=== PATIENT | female | born 2005 | race Caucasian/White ===

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

== ENCOUNTER 2024-04-29 09:31 | Outpatient (CLI) | payer OTHER, SELFPAY ==
[2024-04-29 11:02] LABS: HCG,Quantitative < 2 mIU/ml (0-5.42)
[2024-04-30 13:49] LABS: Progesterone 0.3 ng/mL (.)
== END 2024-04-29 23:59 | disposition home or self-care (01) ==
LOC: LAB 09:32
PROVIDERS: Visit Provider Obstetrics & Gynecology
DX: N92.6 Irregular menstruation, unspecified (principal)
CPT/HCPCS: 36415; 84144; 84702

== ENCOUNTER 2024-06-16 14:00 | Emergency (ER) | payer OTHER, SELFPAY ==
[2024-06-16] VITALS (7 sets, daily range): BP systolic 131–157; BP diastolic 78–101; PULSE 62–76; RESP 16–18; TEMP 36.7; O2SAT 96–100; BMI 26.6
--- NOTE | 2024-06-16 14:48 | ED_ITS ---
<Statement entered by Danyell Ritter DO - 06/16/24 22:57> I was consulted by the JL, and we discussed the complexity of the problems being addressed. I approved the treatment and management plan for this patient's care in the emergency department, thus performing a substantive portion of the medical decision making. Danyell Ritter DO Discharge Plan Disposition Patient Disposition: Home, Self-Care Condition: Good Prescriptions Prescriptions: No Action levonorgestrel-ethinyl estrad [Aviane] 0.1-20 mg-mcg tablet 1 tab PO DAILY Qty: 84 4RF sertraline 50 mg tablet 50 mg PO DAILY Qty: 30 2RF Referrals Follow up/Referrals: Twan Santizo II, MD [Staff Physician] - See instructions Simón Vilchis DO [Staff Physician] - See instructions Provider,MD Mya [Primary Care Provider] - See instructions Activity Restrictions/Add. Instructions Additional Instructions/Restrictions: As we discussed I have referred you both to gastroenterology and to Dr. Vilchis as your PCP. You will need further workup as an outpatient. Please call in the morning to make an appointment for Dr. Santizo. Return to ER for any worsening signs or symptoms as needed. Clinical Impressions Clinical Impression: Abdominal pain, epigastric Instructions Patient Instructions: DI for Acute Abdominal Pain Print Language Print Language: Faroese Discharge ED Provider: Danyell Ritter General Adult HPI General Chief complaint: Abdominal Pain Stated complaint: gallbladder pain Time Seen by Provider: 06/16/24 14:48 History of Present Illness HPI narrative: Patient is here for evaluation of epigastric abdominal pain. Patient gives a history of 2 years of up to now intermittent epigastric abdominal pain primarily after eating. She has never had it worked up previously and usually lasts for a day or so and it goes away. However over the last week it has happened daily after every meal. She is still tolerating oral intake but reports nausea pain in the epigastrium that does not radiate no fever chills she is nauseated but no vomiting diarrhea. She is still having normal bowel movements and passing gas. She has never had any abdominal surgeries. Currently however her pain is not present. Related Data Previous Rx's ?Medication ?Instructions ?Recorded sertraline 50 mg tablet 50 mg PO DAILY #30 tabs 01/10/24 levonorgestrel-ethinyl estradiol 1 tab PO DAILY #84 tabs 04/10/24 0.1 mg-20 mcg tablet (Aviane) Allergies Allergy/AdvReac Type Severity Reaction Status Date / Time No Known Allergies Allergy Verified 05/20/24 10: [facility] Disclaimer: The information contained in this section may have been updated after the patient was seen, as this information can be updated by other users. Medical History History of chlamydia infection Abnormal uterine bleeding LLQ pain Depression Anxiety Irregular periods History of ovarian cyst Surgical History (Reviewed 05/20/24 @ 10: by Claudette Su MA) History of tonsillectomy Family History (Reviewed 05/20/24 @ : by Claudette Su MA) Father Hypertension Social History (Reviewed 05/20/24 @ : by Claudette Su MA) Smoking Status: Current every day smoker tobacco type: e-cigarettes alcohol intake: never current occupational status: other Travel in the last 8 weeks: None Other Medical History Have you received the Flu Vaccine for this season: No Have you received the Pneumonia Vaccine: No ROS Obtained: Yes Systems reviewed as appropriate & no additional complaints except as documented Physical Exam General General appearance: alert and in no apparent distress Neck Neck exam: Present lymphadenopathy Respiratory Respiratory exam: Present normal lung sounds bilaterally Cardiovascular Cardiovascular exam: Present regular rate Neurological Exam Neurological exam: Present alert and oriented X3 Medical Decision Making Medical Records Medical records reviewed: Yes I reviewed the patient's medical records. Screening: Per USPSTF and CDC recommendations, given the prevalence of disease in our region, it is our hospital?s policy to screen for HIV and viral Hepatitis for all patients aged 18 and over and those with ongoing risk factors. Lb Inquiry Pt receiving controlled substance: No Vital Signs: 06/16/24 14:53 06/16/24 15:00 06/16/24 15:30 Temperature 98.1 F Temperature Source Oral Pulse Rate 73 66 Pulse Rate [Right Brachial] 65 Respiratory Rate 18 18 16 Blood Pressure 132/83 144/101 H Blood Pressure [Right Arm] 157/92 H Blood Pressure Mean 99 109 Blood Pressure Mean [Right Arm] 113 02 Sat by Pulse Oximetry 99 100 100 Oxygen Delivery Method Room Air 06/16/24 16:33 06/16/24 17:01 06/16/24 17:30 Temperature Temperature Source Pulse Rate 73 76 69 Pulse Rate [Right Brachial] Respiratory Rate Blood Pressure 150/87 H 131/80 133/78 Blood Pressure [Right Arm] Blood Pressure Mean 93 Blood Pressure Mean [Right Arm] 02 Sat by Pulse Oximetry 96 99 100 Oxygen Delivery Method Room Air Room Air Room Air Lab Data Lab results reviewed: Yes I reviewed the patient's lab results. Lab Results 06/16/24 14:54: WBC 6.2, RBC 4.61, Hgb 15.0, Hct 43.6, MCV 94.6, MCH 32.5 H, MCHC 34.3, RDW 12.7, Plt Count 214, MPV 8.7, Neut % (Auto) 52.1, Lymph % (Auto) 38.7, [place] % (Auto) 5.9, Eos % (Auto) 1.9, Baso % (Auto) 1.3, Neut # (Auto) 3.3, Lymph # (Auto) 2.4, [place] # (Auto) 0.4, Eos # (Auto) 0.1, Baso # (Auto) 0.1, Sodium 140, Potassium 3.7, Chloride 106, Carbon Dioxide 23, Anion Gap 14.7, BUN 8, Creatinine 0.60, Estimated Creat Clear 167, Estimated GFR 129, Est GFR ( Amer) 156, Glucose 81, Calcium 9.0, Total Bilirubin 1.4 H, AST 30, ALT 19, Alkaline Phosphatase 43, Total Protein 7.7, Albumin 4.6, Globulin 3.1, Albumin/Globulin Ratio 1.5, Lipase 94, Serum HCG, Qual Negative, HIV 1&2 Antibody Rapid Nonreactive 06/16/24 16:00: Urine Color Yellow, Urine Appearance Clear, Urine pH 7.0, Ur Specific [place] 1.015, Urine Protein Negative, Urine Glucose (UA) Negative, Urine Ketones Negative, Urine Blood 2+ A, Urine Nitrate Negative, Urine Bilirubin Negative, Urine Urobilinogen 0.2, Ur Leukocyte Esterase Trace, Urine RBC None, Urine WBC Occasional, Ur Squamous Epith Cells Occasional 06/16/24 14:54 06/16/24 14:54 Orders (Tests/Meds): ED MEDICATIONS Discontinued Medications Generic Name Dose Route Start Last Admin Trade Name Freq PRN Reason Stop Dose Admin Acetaminophen 1,000 mg 06/16/24 15:22 06/16/24 15:35 Acetaminophen 1,000mg/100ml Vial IV 06/16/24 15:23 1,000 mg ONCE ONE Administration Iopamidol 75 ml 06/16/24 16:36 06/16/24 16:37 Iopamidol-370 (76%);100ml Bottle IV 06/16/24 16:37 75 ml ONCE ONE Administration Ketorolac Tromethamine 15 mg 06/16/24 15:22 06/16/24 15:35 Ketorolac 30mg/Ml Vial IV 06/16/24 15:23 15 mg ONCE ONE Administration Ondansetron HCl 4 mg 06/16/24 15:22 06/16/24 15:35 Ondansetron 4mg/2ml Vial IV 06/16/24 15:23 4 mg ONCE ONE Administration Sodium Chloride 10 ml 06/16/24 16:36 06/16/24 16:37 Sodium Chloride 0.9% 10ml Syr (Rad Only) IV 06/16/24 16:37 10 ml ONCE ONE Administration ORDERS Category Date Time Status CT abdomen pelvis w con Stat Cat Scan 06/16/24 15:22 Taken CBC w/Auto Diff [Complete Blood Count Auto Diff] Stat Lab 06/16/24 14:54 Completed CMP [Comprehensive Metabolic Panel] Stat Lab 06/16/24 14:54 Completed HCG Qualitative, Serum Stat Lab 06/16/24 14:54 Completed HIV (1&2) Antibody Rapid Stat Lab 06/16/24 14:54 Completed Hep C Ab with Reflex to RNA Stat Lab 06/16/24 14:54 Received Lipase Stat Lab 06/16/24 14:54 Completed UA [Urinalysis and Microscopic] Stat Lab 06/16/24 16:00 Completed Medical Decision Narrative: In summary patient is a 18-year-old female who presents to the emergency department for evaluation of epigastric abdominal pain. Patient is hemodynamically stable upon arrival, febrile. Physical exam is currently unremarkable and nonfocal including no chest pain on palpation no epigastric tenderness on palpation negative palpable Gonzalez sign normal bowel sounds. Breath sounds are normal.. Differential diagnosis includes esophagitis gastritis peptic ulcer disease biliary colic pancreatitis etc. Initial workup will be conducted with hematologic labs CT scan abdomen pelvis urinalysis. Initial interventions include Tylenol Toradol. Initial workup reviewed by me shows her hematologic labs are nonactionable urinalysis is bland and my informal interpretation of CT scan and pelvis shows no acute processes prior to radiology read.. Upon repeat evaluation patient remains asymptomatic. Given this had interactive discussion with the patient on whether waiting to stay for the informal read or read it on the portal and via patient directed discharge she elected to read it on the portal. Given that patient is appropriate for discharge with referrals both to Dr. Vilchis for her PCP and Dr. Santizo for further workup of her epigastric abdominal pain. Critical Care Critical Care Time Critical Care Time: No
--- NOTE | 2024-06-16 15:22 | CT_ITS ---
FINAL REPORT CLINICAL HISTORY: Epigastric abdominal pain FINDINGS: CT OF THE ABDOMEN AND PELVIS WITH CONTRAST Axial CT images of the abdomen and pelvis were obtained after the administration of oral and iv contrast. Coronal reformatted images were also obtained and reviewed.This study was performed with techniques to keep radiation doses as low as reasonably achievable (ALARA). Individualized dose reduction techniques using automated exposure control or adjustment of mA and/or kV according to the patient's size were employed. Abdomen: The lung bases are clear. The heart is normal in size. The liver has an unremarkable appearance, without evidence of mass or biliary ductal dilatation. The spleen is unremarkable. No adrenal mass is present. The pancreas has an unremarkable appearance. The kidneys are normal, without evidence of mass or hydronephrosis. The aorta is normal in caliber. There is no free fluid or adenopathy. No mass or abnormal fluid collection is seen. Pelvis: The appendix is unremarkable. The urinary bladder is unremarkable. No inflammatory process is seen. There is no evidence of mass or adenopathy. There is no evidence of bowel obstruction. A small amount of pelvic free fluid is seen which may be physiologic or reactive. IMPRESSION: No localized inflammatory process identified. Small amount of pelvic free fluid may be physiologic or reactive. Authenticated and ERN
[2024-06-16 15:30] LABS: Basophils # 0.1 K/mm3 (0-0.2); Basophils % 1.3 % (0.1-2.0); Eosinophils # 0.1 K/mm3 (0.0-0.4); Eosinophils % 1.9 % (0.1-12.0); Hematocrit 43.6 % (37.0-47.0); Lymphocytes # 2.4 K/mm3 (0.7-4.5); Lymphocytes % 38.7 % (10-50); Mean Corpuscular HGB Conc 34.3 g/dL (31.8-35.4); Mean Corpuscular Hemoglobin 32.5 pg (27.0-31.2); Mean Corpuscular Volume 94.6 fl (81-99); Mean Platelet Volume 8.7 fl (7.4-10.4); Monocytes # 0.4 K/mm3 (0.1-1.0); Monocytes % 5.9 % (1.7-9.3); Neutrophils # 3.3 K/mm3 (1.8-7.8); Neutrophils % 52.1 % (37.0-80.0); Platelet Count 214 K/mm3 (142-424); Red Blood Count 4.61 M/mm3 (4.20-5.40); Red Cell Distribution Width 12.7 % (11.5-17.5); White Blood Count 6.2 K/mm3 (4.5-13.0)
[2024-06-16] MEDS: ACETAMINOPHEN 1,000MG/100ML VIAL 1000 MG IV (15:35)
[2024-06-16] MEDS: ONDANSETRON 4MG/2ML VIAL 4 MG IV (15:35)
[2024-06-16] MEDS: KETOROLAC 30MG/ML VIAL 15 MG IV (15:35)
[2024-06-16 15:42] LABS: Alanine Aminotransferase 19 U/L (12-78); Albumin Level 4.6 g/dl (3.5-5.0); Albumin/Globulin Ratio 1.5 (1.1-1.8); Alkaline Phosphatase 43 U/L (38-126); Anion Gap 14.7 mEq/L (5-15); Aspartate Amino Transferase 30 U/L (14-36); Bilirubin,Total 1.4 mg/dl (0.2-1.3); Blood Urea Nitrogen 8 mg/dl (7-17); Carbon Dioxide 23 mmol/L (22.0-30.0); Chloride 106 mmol/L (98-107); Creatinine Clearance Estimated 167 mL/min (50-200); Estimated Glomerular Filt Rate 129 ml/min (>60); GFR (African American) 156 ML/MIN (>60); Globulin 3.1 g/dL (1.3-3.2); Glucose 81 mg/dl (74-100); Lipase 94 U/L (23-300); Potassium 3.7 mmoL/L (3.5-5.1); Sodium 140 mmol/L (136-145); Total Protein,Serum 7.7 g/dl (6.3-8.2)
[2024-06-16 16:01] LABS: HIV (1&2) Antibody Rapid NONREACTIVE (NONREACTIVE)
[2024-06-16 16:06] LABS: Microscopic, Urine URINE MICROSCOPIC (MICROSCOPIC)
[2024-06-16 16:18] LABS: HCG Qualitative, Serum Negative (Negative)
[2024-06-16 16:22] LABS: Appearance,Urine CLEAR (Clear); Bilirubin,Urine Negative (Negative); Blood, Urine 2+ (Negative); Color,Urine YELLOW (Yellow); Glucose,Urine (UA) Negative (Negative); Ketones,Urine Negative (Negative); Leukocyte Esterase,Urine TRACE (Negative); Nitrate,Urine Negative (Negative); Protein,Urine Negative (Negative); Specific Gravity, Urine 1.015 (1.005-1.030); Urobilinogen,Urine 0.2 EU/dl (0.2)
--- NOTE | 2024-06-16 16:24 | PC.NURSE ---
PT TO CT
[2024-06-16] MEDS: IOPAMIDOL-370 (76%);100ML BOTTLE 75 ML IV (16:37)
[2024-06-16] MEDS: SODIUM CHLORIDE 0.9% 10ML SYR (RAD ONLY) 10 ML IV (16:37)
[2024-06-16 16:44] LABS: Squamous Epithelial Cell,Urine Occasional #/hpf (0-5); WBC,Urine Occasional #/hpf (0-3)
[2024-06-17 08:51] LABS: HCV Ab Non Reactive (Non Reactive)
== END 2024-06-16 18:12 | disposition home or self-care (01) ==
PROVIDERS: Emergency Medicine; Physician Assistant; Emergency Provider Emergency Medicine
DX: R10.13 Epigastric pain (principal); R11.0 Nausea
CPT/HCPCS: 74177; 80053; 81001; 83690; 84703; 85025; 86803; 87389; 96374; 96375; 99285; J0131; J1885; J2405; Q9967

== ENCOUNTER 2024-07-02 07:36 | Outpatient (CLI) | payer OTHER, SELFPAY ==
--- NOTE | 2024-07-02 07:37 | US_ITS ---
FINAL REPORT TECHNIQUE: Sonographic images of the right upper quadrant were obtained. CLINICAL HISTORY: post-prandial colicky RUQ/epigastric pain/nausea FINDINGS: PANCREAS: Unremarkable. LIVER: Homogeneous. No focal hepatic lesion. No intrahepatic biliary ductal dilatation. The portal vein is patent. GALLBLADDER: No gallstones. No gallbladder wall thickening or pericholecystic fluid. COMMON DUCT: 3 mm. Normal for age. RIGHT KIDNEY: The right kidney measures 9.2 cm. There is no hydronephrosis, mass, or stone. FREE FLUID: None. IMPRESSION: Unremarkable ultrasound of the right upper quadrant. Reviewed, Interpreted and Dictated by Monica Teran MD Transcribed by Michelle Noonan Authenticated and [facility]
== END 2024-07-02 23:59 | disposition home or self-care (01) ==
LOC: RAD 07:37
PROVIDERS: PCP Nurse Practitioner Family; Visit Provider Nurse Practitioner Family
DX: R10.11 Right upper quadrant pain (principal); R11.0 Nausea
CPT/HCPCS: 76705

== ENCOUNTER 2024-07-28 18:16 | Emergency (ER) | payer OTHER, SELFPAY ==
--- NOTE | 2024-07-28 19:34 | ED_ITS ---
Discharge Plan Disposition Patient Disposition: Home, Self-Care Condition: Good Prescriptions Prescriptions: No Action levonorgestrel-ethinyl estrad [Aviane] 0.1-20 mg-mcg tablet 1 tab PO DAILY Qty: 84 4RF azithromycin 250 mg tablet See Rx Instructions PO .COMPLEX Qty: 6 0RF Rx Instructions: For 250 mg dose pack: take 500 mg today (day 1), then 250 mg for 4 days (days 2-5) PO prednisone 10 mg tablets,dose pack See Rx Instructions PO PER PKG DIR Qty: 21 0RF Rx Instructions: PO PER PKG DIR sertraline 50 mg tablet 50 mg PO DAILY Qty: 30 2RF Referrals Follow up/Referrals: Provider,Referral, MD [Primary Care Provider] - See instructions Activity Restrictions/Add. Instructions Additional Instructions/Restrictions: Keep the wounds clean and dry. Follow up with your regular doctor. Take the antibiotics as directed and apply the topical antibiotics as directed. Make sure you stay in contact with the health department regarding the health of the dog. Watch the puncture wounds for signs of worsening infection, such as worsening redness, drainage, swelling, etc. GO TO THE ER FOR ANY WORSENING SYMPTOMS Clinical Impressions Clinical Impression: Dog bite, Need for Tdap vaccination Instructions Patient Instructions: Tetanus, Diphtheria, and Pertussis Vaccine, Amoxicillin and Clavulanic Acid, DI for Dog Bite Print Language Print Language: Ukrainian Discharge ED Provider: Gilson Hurley [facility] General Stated complaint: tetanus shot Time Seen by Provider: 07/28/24 19:34 Related Data Previous Rx's ?Medication ?Instructions ?Recorded sertraline 50 mg tablet 50 mg PO DAILY #30 tabs 01/10/24 levonorgestrel-ethinyl estradiol 1 tab PO DAILY #84 tabs 04/10/24 0.1 mg-20 mcg tablet (Aviane) azithromycin 250 mg tablet See Rx Instructions PO .COMPLEX #6 08/04/24 tabs prednisone 10 mg tablets in a dose See Rx Instructions PO PER PKG DIR 08/04/24 pack #21 tabs Allergies Allergy/AdvReac Type Severity Reaction Status Date / Time No Known Allergies Allergy Verified 08/04/24 11:08 [facility] Disclaimer: The information contained in this section may have been updated after the patient was seen, as this information can be updated by other users. Medical History History of chlamydia infection Abnormal uterine bleeding LLQ pain Depression Anxiety Irregular periods History of ovarian cyst Surgical History History of tonsillectomy Family History Father Hypertension Social History Smoking Status: Current every day smoker tobacco type: e-cigarettes alcohol intake: never current occupational status: other Travel in the last 8 weeks: None Have you lived/traveled outside [place] in past 30 days?: No Contact w/someone who lives/traveled outside [place] past 30 days?: No Exposure to someone with infectious disease in past 14 days?: No Do you have a fever (greater than 100.4 F or 38 C)?: Yes Have you tested positive for COVID-19: No Exposed to someone with COVID-19 in past 14 days?: No Do you have a sore throat?: Yes Do you have a cough?: Yes Do you have shortness of breath?: Yes Do you have a headache?: Yes Do you have any weakness?: Yes Are you experiencing any nausea/vomitting?: No Do you have any diarrhea?: No Are you experiencing any unusual bleeding?: No Do you have any muscle aches/pain?: Yes Do you have any abdominal pain?: No Are you experiencing loss of taste or smell?: No ROS Obtained: Yes All systems reviewed & no additional complaints except as documented Constitutional Constitutional: Denies chills and Denies fever(s) Eyes Eyes: Denies eye discharge ENT Ears, Nose, Mouth, and Throat: Denies dizziness, Denies otalgia and Denies sore throat Cardiovascular Cardiovascular: Denies chest pain Respiratory Respiratory: Denies shortness of breath, Denies chest congestion, Denies cough, Denies stridor and Denies wheezing Gastrointestinal Gastrointestingal: Denies nausea or vomiting Musculoskeletal Musculoskeletal: Reports system reviewed and no additional complaints, except as documented and Denies arthralgias Integumentary/Breasts Skin/Breast: Reports as per HPI and Reports wounds Neurologic Neurologic: Denies dizziness and Denies paresthesias Allergic/Immunologic Allergic/Immunologic: Denies wheezing Physical Exam General General appearance: alert and in no apparent distress Head Head exam: atraumatic, normocephalic and normal inspection Eye Eye exam: Present normal appearance, PERRL and EOMI ENT ENT exam: Present normal exam, normal oropharynx, mucous membranes moist, TM's normal bilaterally and normal external ear exam Neck Neck exam: Present normal inspection, full ROM and trachea midline; Absent meningismus or lymphadenopathy Chest Chest inspection: Present normal inspection and symmetric chest wall rise; Absent tenderness Respiratory Respiratory exam: Present normal lung sounds bilaterally; Absent respiratory distress Cardiovascular Cardiovascular exam: Present regular rate and normal rhythm; Absent JVD Abdominal Exam Abdominal exam: Present soft and normal bowel sounds; Absent distention, tenderness or guarding Extremities Exam Extremities exam: Present normal inspection, full ROM and normal capillary refill; Absent calf tenderness Back Exam Back exam: Present normal inspection; Absent tenderness Neurological Exam Neurological exam: Present alert and oriented X3 Psychiatric Psychiatric exam: Present normal affect and normal mood Skin Skin exam: Present warm, dry, intact and normal color Lymphatic Lymphatic Findings: no adenopathy Medical Decision Making Medical Records Medical records reviewed: No I reviewed the patient's medical records. Screening: Per USPSTF and CDC recommendations, given the prevalence of disease in our region, it is our hospital?s policy to screen for HIV and viral Hepatitis for all patients aged 18 and over and those with ongoing risk factors. Lb Inquiry Pt receiving controlled substance: No
[2024-07-28 19:35] VITALS: BP 145/80; PULSE 61; RESP 18; TEMP 36.8; O2SAT 100; BMI 28.3
[2024-07-28] MEDS: TET/DIPHTH/PERT-ADULT 0.5ML SYRINGE 0.5 ML IM (19:49)
[2024-07-28 19:53] VITALS: BP 145/80; PULSE 61; RESP 18; TEMP 36.8
== END 2024-07-28 19:53 | disposition home or self-care (01) ==
PROVIDERS: Emergency Provider Nurse Practitioner Family
DX: Z23 Encounter for immunization (principal)
CPT/HCPCS: 90471; 90715; 99212; G0381

== ENCOUNTER 2024-07-31 10:07 | Outpatient (CLI) | payer OTHER, SELFPAY ==
--- NOTE | 2024-07-31 10:08 | NM_ITS ---
FINAL REPORT CLINICAL HISTORY: Elevated bilirubin/right upper quadrant pain FINDINGS: The patient was injected with 8.39 mCi of technetium 99m Choletec and subsequently 1.5 mcg of CCK. Images of the abdomen were obtained for one hour. There is normal distribution of radiopharmaceutical throughout the liver. Sequential images demonstrate progressive accumulation of activity within the gallbladder. There is a calculated ejection fraction of 52%, within normal limits. IMPRESSION: Ejection fraction within normal limits. Reviewed, Interpreted and Dictated by Valdemar Nelson MD Transcribed by Elyssa Garcia Authenticated and . [facility]
[2024-07-31] MEDS: SINCALIDE 1.5 MCG in 0.9 % SODIUM CHLORIDE 50 ML 100 MCG IV (11:49)
[2024-07-31] MEDS: SODIUM CHLORIDE 0.9% 10ML SYR (RAD ONLY) 10 ML IV (11:49)
[2024-07-31] MEDS: ISOTOPE CHOLETECH;1 DOSE (UP TO 15 MCI) IV (11:49)
== END 2024-07-31 23:59 | disposition home or self-care (01) ==
LOC: RAD 10:08
PROVIDERS: PCP Nurse Practitioner Family; Visit Provider Nurse Practitioner Family
DX: R10.11 Right upper quadrant pain (principal); R10.13 Epigastric pain; R11.0 Nausea; R17 Unspecified jaundice
CPT/HCPCS: 78227; A9537; J2805

== ENCOUNTER 2025-01-23 09:36 | Outpatient (CLI) | payer OTHER, SELFPAY | END 2025-01-23 23:59 | disposition home or self-care (01) | LOC: LAB.DROPOF 01-26 09:37 | PROVIDERS: PCP Nurse Practitioner Family; Visit Provider Nurse Practitioner Family | DX: J02.9 Acute pharyngitis, unspecified (principal) | CPT/HCPCS: 87070 ==

== ENCOUNTER 2025-04-02 09:48 | Outpatient (CLI) | payer OTHER, SELFPAY ==
[2025-04-02 17:48] LABS: Hematocrit 43.2 % (37.0-47.0); Hemoglobin 14.5 g/dL (12.2-16.2); Immature Granulocytes % 0.3 %; Mean Corpuscular HGB Conc 33.6 g/dL (31.8-35.4); Mean Corpuscular Hemoglobin 31.5 pg (27.0-31.2); Mean Corpuscular Volume 93.9 fl (81-99); Nucleated Red Blood Cells % 0 %; Platelet Count 201 K/mm3 (142-424); Red Blood Count 4.60 M/mm3 (4.20-5.40); Red Cell Distribution Width-SD 41.2 fL; White Blood Count 6.5 K/mm3 (4.5-13.0)
[2025-04-02 18:14] LABS: Albumin Level 4.6 g/dl (3.5-5.0); Chloride 104 mmol/L (98-107); Potassium 4.3 mmoL/L (3.5-5.1); Sodium 138 mmol/L (136-145)
[2025-04-02 18:16] LABS: Amylase 74 U/L (30-110)
[2025-04-02 18:17] LABS: Alanine Aminotransferase 27 U/L (12-78); Albumin/Globulin Ratio 1.5 (1.1-1.8); Alkaline Phosphatase 78 U/L (38-126); Anion Gap 12.3 mEq/L (5-15); Aspartate Amino Transferase 35 U/L (14-36); Bilirubin,Total 1.4 mg/dl (0.2-1.3); Blood Urea Nitrogen 11 mg/dl (7-17); Calcium 9.7 mg/dl (8.4-10.2); Carbon Dioxide 26 mmol/L (22.0-30.0); Creatinine,Serum 0.60 mg/dl (0.52-1.04); Estimated Glomerular Filt Rate 127 ml/min (>60); GFR (African American) 154 ML/MIN (>60); Globulin 3.0 g/dL (1.3-3.2); Glucose 88 mg/dl (74-100); Lipase 87 U/L (23-300); Total Protein,Serum 7.6 g/dl (6.3-8.2)
[2025-04-02 18:22] LABS: C-Reactive Protein 2.8 mg/L (0-4)
[2025-04-02 18:48] LABS: Thyroid Stimulating Hormone 1.38 uIU/mL (0.465-4.68)
== END 2025-04-02 23:59 ==
LOC: LAB.DROPOF 04-07 09:48
PROVIDERS: PCP Nurse Practitioner Family; Visit Provider Nurse Practitioner Family
DX: R10.9 Unspecified abdominal pain (principal); R19.7 Diarrhea, unspecified
CPT/HCPCS: 80053; 82150; 83690; 84443; 85025; 86140

== ENCOUNTER 2025-04-10 08:14 | Outpatient (CLI) | payer OTHER, SELFPAY ==
--- NOTE | 2025-04-10 08:30 | US_ITS ---
FINAL REPORT TECHNIQUE: Sonographic images of the abdomen were obtained in all four quadrants. CLINICAL HISTORY: Abdominal pain FINDINGS: LIVER: Homogeneous. No focal hepatic lesion or intrahepatic biliary dilatation. Portal vein is patent. GALLBLADDER: No gallstones. No pericholecystic fluid collection or gallbladder wall thickening. The common duct measures 2 mm. This is within normal limits for age. PANCREAS: Tail of the pancreas obscured. The head is normal. RIGHT KIDNEY: 9.4 cm. No hydronephrosis, mass or stone. LEFT KIDNEY: 10.5 cm. No hydronephrosis, mass or stone. SPLEEN: 10.1 cm. No focal splenic lesion. AORTA/IVC: No abdominal aortic aneurysm. OTHER: No ascites. IMPRESSION: Unremarkable ultrasound of the abdomen. Reviewed, Interpreted and Dictated by Monica Teran MD Transcribed by Olya Becerra Authenticated and [facility]
== END 2025-04-10 23:59 | disposition home or self-care (01) ==
LOC: RAD 08:14
PROVIDERS: PCP Nurse Practitioner Family; Visit Provider Nurse Practitioner Family
DX: R10.9 Unspecified abdominal pain (principal)
CPT/HCPCS: 76700

== ENCOUNTER 2025-05-19 15:38 | Outpatient (CLI) | payer OTHER, SELFPAY ==
--- NOTE | 2025-05-19 16:00 | US_ITS ---
PROCEDURE: US TRANSVAGINAL CLINICAL INDICATION: pelvic pain COMPARISON: US US TRANSVAGINAL from 08/02/[address] ABDOMEN PELVIS W CON from 06/16/2024 US US ABDOMEN COMPLETE from 04/10/2025 FINDINGS: Transvaginal sonographic images of the pelvis were obtained. UTERUS: 7.6 cm x 3.9 cmx 3.0cm anteverted with a combined endometrial thickness of 7mm. The endometrium appears trilaminar. LEFT OVARY: 1.6x2.7 cmx2.2cm with a volume of 5ml. There are several small follicles. RIGHT OVARY: 2.5cmx 2.4cmx1.0cm with a volume of 3.2ml. There is a follicle measuring 1.7 cm x 0.7 cm x 1.5 cm. Both ovaries are seen and appear normal. Doppler flow to both ovaries are seen. There is no fluid in the cul-de-sac. IMPRESSION: 1. Anteverted uterus normal in shape and size. The endometrium is normal and appears trilaminar. 2. Both ovaries are seen and appear normal. The right ovary contains a dominant follicle measuring 1.7 cm. 3. No fluid in the cul-de-sac. Dictated by: Dany Ochoa MD 05/20/2025 09:44 Dany Ochoa MD in [place] 05/20/2025 09:44
== END 2025-05-19 23:59 | disposition home or self-care (01) ==
LOC: RAD 15:38
PROVIDERS: PCP Nurse Practitioner Family; Visit Provider Obstetrics & Gynecology
DX: N85.4 Malposition of uterus (principal); R93.89 Abnormal findings on diagnostic imaging of other specified body structures
CPT/HCPCS: 76830

== ENCOUNTER 2025-07-03 09:05 | Outpatient (CLI) | payer OTHER, SELFPAY ==
--- NOTE | 2025-07-03 09:30 | MR_ITS ---
FINAL REPORT CLINICAL HISTORY: Left Elbow Pain. ELBOW POPPED AND KNOT CAME UP ON ANTERIOR LATERAL ASPECT OF ELBOW. PUT MARKER ON KNOT. PAIN RADIATES UP AND DOWN ELBOW. COMPARISON: None FINDINGS: Multiplanar and multisequence imaging of the left elbow was obtained without contrast. BONES: There is no acute fracture, contusion or pathologic marrow replacement. Joint space is preserved. There is no joint effusion or loose body. LIGAMENTS: The radial collateral ligament and lateral ulnar collateral ligament are intact. The ulnar collateral ligament proper is intact and there is no fracture of the sublime tubercle. TENDON/MUSCLES: The common extensor tendon is normal in size and signal intensity at its insertion on the lateral epicondyle. The common flexor tendon is normal in size and signal intensity at its insertion on the medial epicondyle. The triceps tendon, biceps tendon, and brachialis tendon are intact and within normal limits. Signal intensity within the muscles themselves is normal. OTHER SOFT TISSUES: There is no abnormal mass or fluid collection. The nerves and vascular structures appear normal. IMPRESSION: No acute osseous abnormality or ligament or tendon tear. No mass or fluid collection of the marker placed at area of reported abnormality. Reviewed, Interpreted and Dictated by Monica Teran MD Transcribed by Elyssa Garcia Authenticated and [facility]
== END 2025-07-03 23:59 | disposition home or self-care (01) ==
LOC: RAD 09:09
PROVIDERS: PCP Nurse Practitioner Family; Visit Provider Orthopaedic Surgery
DX: S56.912A Strain of unspecified muscles, fascia and tendons at forearm level, left arm, initial encounter (principal); M25.522 Pain in left elbow
CPT/HCPCS: 73221